=== PATIENT | female | born 2005 | race Hispanic/Latino ===

== ENCOUNTER → 2023-10-13 08:12 | Outpatient (CLI) | payer OTHER, SELFPAY ==
--- NOTE | 2023-10-13 08:15 | DI.MRI.S_ITS ---
PROCEDURE: MR SHOULDER LT W CON INDICATIONS: left shoulder pain TECHNIQUE: After the administration of 12 mL of dilute intra-articular Gadolinium contrast, oblique coronal T1 and T2 spin echo with fat saturation, oblique sagittal T1 spin echo with and without fat saturation, oblique sagittal T2 fast spin echo with fat saturation, axial T1 spin echo with fat saturation through the shoulder. COMPARISON: None. FINDINGS: Image quality: Excellent. Rotator cuff: The supraspinatus, infraspinatus, and subscapularis tendons appear intact throughout. No rotator cuff muscle atrophy on sagittal images. Bones and bursae: No significant degenerate change in the acromioclavicular joint. Type 1 acromion. No os acromiale. There is mild flattening of the posterosuperior humeral head, without associated marrow edema, concerning for chronic Hill-Sachs deformity. No acute fracture. No focal chondral defect. Capsule and soft tissues: Superior labral tear. No extension to the biceps anchor. No paralabral cyst. The extra-articular, in the intra-articular biceps tendon is intact. IMPRESSION: 1. Superior labral tear. 2. Findings suggestive of chronic Hill-Sachs deformity. Recommend correlation with prior history of shoulder dislocation. Dictated by: Mayra Robin M.D. on 10/13/2023 at 11:14 Approved by: Mayra Robin M.D. on 10/13/2023 at 11:22
--- NOTE | 2023-10-13 08:15 | DI.RAD.S_ITS ---
PROCEDURE: FL SHOULDER INJECTION MR/CT LT INDICATIONS: left shoulder pain COMPARISON: , MR, MR SHOULDER LT W CON, 10/13/2023, 8:46. TECHNIQUE: The indications, alternatives, benefits, risks, and complications of the procedure were explained to the patient. Written informed consent was obtained and placed in the chart. The shoulder was examined fluoroscopically and a site for needle placement chosen for entry into the glenohumeral joint from an anterior approach. The skin was prepped and draped in a sterile fashion, and 1% lidocaine infiltrated from skin down to joint capsule. A spinal needle was inserted into the glenohumeral joint, and a small amount of iodinated contrast media injected to confirm intra-articular placement of the needle tip. This was followed by approximately 12 mL dilute solution of a gadolinium containing MR contrast agent. The needle was removed and a dressing was applied. The patient was given postprocedural instructions and sent to the MR suite for MR imaging. FINDINGS: A single fluoroscopic spot image demonstrates intra-articular location of injected iodinated contrast. IMPRESSION: Successful fluoroscopically guided administration of dilute Gadolinium solution into the shoulder joint for MR arthrogram. Dictated by: Humberto De La Garza M.D. on 10/13/2023 at 17:22 Approved by: Humberto De La Garza M.D. on 10/13/2023 at 17:23
[2023-10-13] MEDS: SODIUM CHLORIDE 0.9 % 20 ML VIAL IV (11:51)
[2023-10-13] MEDS: LIDOCAINE 1% 20 ML INJ (11:51)
== END ==
LOC: RAD 08:15
PROVIDERS: Referring Provider Orthopaedic Surgery; Visit Provider Orthopaedic Surgery
DX: S43.492A Other sprain of left shoulder joint, initial encounter (principal); M25.512 Pain in left shoulder
CPT/HCPCS: 23350; 73040; 73222; A9579; Q9967

== ENCOUNTER → 2024-09-19 15:37 | Outpatient (CLI) | payer OTHER, SELFPAY ==
--- NOTE | 2024-09-19 | DI.RAD.S_ITS ---
PROCEDURE: FL JOINT INJECTION LARGE LT INDICATIONS: pain in lt shoulder COMPARISON: [facility], MR, MR SHOULDER LT W CON, 10/13/2023, 8:46. TECHNIQUE: Informed consent was obtained and the injection site was marked with ink. The patient, the procedure, and the site were confirmed during a pre-procedure huddle. Using sterile technique, local anesthesia, and fluoroscopic guidance, a 22 gauge needle was advanced through the skin into the left shoulder joint. Following intra-articular confirmation with 1 cc of contrast, a mixture of 1 cc 40 mg/mL Kenalog + 2 cc 1% lidocaine + 2 cc 0.5% bupivacaine was injected into the joint. The needle was then removed, and hemostasis was obtained with direct pressure. No complications were encountered. Multiple images were obtained and archived. FINDINGS: There were no arthrographic abnormalities; a normal distribution of intra-articular contrast was observed. The patient reports subjective improvement in pain immediately post-injection, decreasing from 9/10 to 1/10. Complications: None. IMPRESSION: Successful fluoroscopically guided administration of steroid and anaesthetic solution into the left shoulder joint. Dictated by: Terence Addison M.D. on 09/20/2024 at 8:29 Approved by: Terence Addison M.D. on 09/20/2024 at 8:34
[2024-09-19] MEDS: LIDOCAINE 1% 20 ML INJ (17:00)
[2024-09-19] MEDS: ROPIVACAINE 0.5% PF 5 MG/ML 20ML VIAL 20 ML INJ (17:01)
[2024-09-19] MEDS: TRIAMCINOLONE 40 MG/ML VIAL INTRA-ARTI (17:01)
== END ==
PROVIDERS: Referring Provider Student in an Organized Health Care Education/Training Program; Visit Provider Student in an Organized Health Care Education/Training Program
DX: M25.512 Pain in left shoulder (principal)
CPT/HCPCS: 20610; 77002; Q9967